=== PATIENT | female | born 1960 | race African-American/Black ===

== ENCOUNTER 2017-01-24 10:38 | Emergency (ER) | payer OTHER ==
[2017-01-24 11:46] LABS: Bilirubin Negative (Negative); Blood, Urine Negative (Negative); Glucose, Urine (Dipstick) Negative (Negative); Ketone, Urine Negative (Negative); Nitrite Positive (Negative); Protein, Urine (Dipstick) Trace mg/dL (Neg-Trace)
[2017-01-24 11:48] LABS: Bacteria/HPF 4+ HPF (None Seen); Hyaline Casts/LPF 0-3 HYALINE CAST LPF (0-3 Hyaline)
[2017-01-24 11:52] LABS: #Basophils 0.1 thou/uL (0.0-0.2); #Eosinphils 0.2 thou/uL (0.0-0.7); #Lymphocytes 2.3 thou/uL (1.20-3.40); #Monocytes 0.5 thou/uL (0.11-0.59); #Neutrophils 2.5 thou/uL (1.40-6.50); %Basophils 1.1 % (0.0-1.0); %Eosinophils 2.7 % (0.0-10.0); %Monocytes 9.3 % (0.0-10.0); Hematocrit 44.2 % (36.0-47.0); Mean Platelet Volume 7.4 fL (7.4-10.4); Red Blood Cell (RBC) Count 4.57 mill/uL (4.20-5.40); White Blood Cell (WBC) Count 5.5 thou/uL (4.8-10.8)
[2017-01-24] MEDS ORDERED: cefTRIAXone\\ROCEPHIN 2 GM VIAL ONE (12:02)
[2017-01-24] MEDS ORDERED: Ketorolac Tromethamine 30 MG/ML VIAL ONE (12:02)
--- NOTE | 2017-01-24 12:07 | CT ---
CT ABDOMEN AND PELVIS PERFORMED WITHOUT CONTRAST ENHANCEMENT: HISTORY: Left flank pain. FINDINGS: ABDOMEN: The lung bases show atelectatic change. The liver, spleen, pancreas, and gallbladder regions all appear unremarkable. The right and left ad renal glands and the right and left kidneys are normal in size. Hypodensity involving the left kidn ey is incompletely characterized but may represent a tiny cyst. There appears to be faint, punctate , nonobstructing bilateral renal calculi. There is no evidence of obstruction of either ureter, and no definite ureteral calculi are seen. There is no significant periaortic or mesenteric adenopathy . PELVIS: No inflammatory process or evidence of any significant adenopathy or mass. IMPRESSION: Tiny faint calcifications involving the kidneys, suggesting tiny punctate calculi. No signs of obst ruction. Subtle hypodensity involving the left kidney, most likely small cysts. POS: [facility]
[2017-01-24 12:12] LABS: ALT (SGPT) 52 U/L (8-55); AST (SGOT) 59 U/L (5-34); Alkaline Phosphatase 95 U/L (40-150); Anion Gap 13 mmol/L (10-20); BUN (Urea Nitrogen) 15 mg/dL (9.8-20.1); Bilirubin, Total 0.3 mg/dL (0.2-1.2); Calc. Creatinine Clearance 0 mL/min (70-130); Calcium 9.6 mg/dL (7.8-10.44); Carbon Dioxide 27 mmol/L (22-29); Chloride 102 mmol/L (98-107); Estimated GFR-MDRD Greater than 90; Globulin 4.1 g/dL (2.4-3.5); Lipase 69 U/L (8-78); Protein, Total 7.9 g/dL (6.0-8.3)
== END 2017-01-24 13:35 | disposition home or self-care (01) ==
LOC: ERS 10:38
DX: N12 Tubulo-interstitial nephritis, not specified as acute or chronic (principal); I10 Essential (primary) hypertension; F31.9 Bipolar disorder, unspecified; F17.210 Nicotine dependence, cigarettes, uncomplicated
CPT/HCPCS: 74176; 80053; 81003; 81015; 83690; 85025; 87077; 87086; 87186; 96365; 96375; J0696; J1885

== ENCOUNTER 2019-01-04 06:53 | Outpatient (CLI) | payer OTHER ==
--- NOTE | 2019-01-04 08:02 | ULT ---
US Abdominal: 01/04/2019 12:00 AM CLINICAL HISTORY: Gastroesophageal reflux. Possible hernia.. STUDY: Complete abdominal ultrasound COMPARISON: None. FINDINGS: Liver: Size: Normal. Echogenicity: Normal. Contour: Smooth. Mass: None. Common bile duct: 4 mm Gallbladder: Normal. Pancreas: Head, body, and tail appear normal. Inferior vena cava: Normal in caliber Aorta: Normal in caliber Spleen: No focal lesions. Spleen measuring 11.4 cm in length. Right kidney: No pelvicalyceal dilatation. Right kidney measuring 9.4 cm in length. Left kidney: No pelvicalyceal dilatation. Left kidney measuring 10.3 cm in length. There is a 1.2 cm cyst in the left kidney. No hernia was seen at the area of concern. IMPRESSION: Left renal cyst; otherwise unremarkable exam
--- NOTE | 2019-01-04 08:13 | RAD ---
EXAM: Single view of the chest HISTORY: Emphysema COMPARISON: 09/29/2015 FINDINGS: Single view of the chest shows a normal sized cardiomediastinal silhouette. There is no phuc dence of consolidation, mass, or pleural effusion. The bones are unremarkable. IMPRESSION: No evidence of acute cardiopulmonary disease
--- NOTE | 2019-01-04 08:15 | RAD ---
EXAM: 3 views of the thoracic spine HISTORY: Thoracic spine pain COMPARISON: None FINDINGS: 3 views of the thoracic spine shows anterior wedging of the T11 vertebral body. This is lik delmy chronic. There is normal height and alignment of the other vertebral bodies without fracture or subluxation. Moderate joint space narrowing and osteophyte formation is seen throughout the thoracic spine. IMPRESSION: Degenerative changes of the thoracic spine without acute osseous abnormality.
--- NOTE | 2019-01-04 09:05 | RAD ---
LUMBAR SPINE 2 VIEWS: Date: 01/04/19 HISTORY: Back pain. Comparison made to a lateral view of the spine taken on chest film of 09/29/15. There is mild anterior wedge compression of the L1 vertebra with disc narrowing at T12-L1. Mild osteo phytes at the T12-L1 level are noted. This mild wedging was present in 2016 and does not appear significantly changed. The other lumbar vertebra maintain normal height. There is loss of disc space at L5-S1 and there is a slight anterolisthesis at L5-S1 with degenerative sparing at L5-S1. There is facet hypertrophy. IMPRESSION: 1. Mild anterior wedging of the L1 vertebra is stable from prior exam. 2. Degenerative change lumbar spine noted as described. POS: [facility]
--- NOTE | 2019-01-05 10:27 | MMO ---
Bilateral MAMMO Bilat Screen [facility]. CLINICAL HISTORY: Patient is 58 years old and is seen for screening. The patient has no family history of breast cancer. The patient has no personal history of cancer. VIEWS: The views performed were: bilateral craniocaudal and bilateral mediolateral oblique. FILMS COMPARED: The present examination has been compared to prior imaging studies performed at [facility] on 10/09/2010, 10/10/2014 and 10/21/2015, and at [facility] [place] on 06/01/2006. This study has been interpreted with the assistance of computer-aided detection. MAMMOGRAM FINDINGS: The breasts are heterogeneously dense, which could obscure a lesion on mammography. There are no suspicious masses, suspicious calcifications, or new areas of architectural distortion. IMPRESSION: THERE IS NO MAMMOGRAPHIC EVIDENCE OF MALIGNANCY. A ROUTINE FOLLOW-UP MAMMOGRAM IN 1 YEAR IS RECOMMENDED. ACR BI-RADS Category 1 - Negative MAMMOGRAPHY NOTE: 1. A negative mammogram report should not delay a biopsy if a dominant of clinically suspicious mass is present. 2. Approximately 10% to 15% of breast cancers are not detected by mammography. 3. Adenosis and dense breasts may obscure an underlying neoplasm. Reported by: DIANELYS ANGUIANO MD Electonically Signed: [id number]
== END 2019-01-04 06:54 | disposition home or self-care (01) ==
LOC: BICULT 06:53 → BICMAMMO 06:54
PROVIDERS: ATTEND Family Medicine
DX: K43.9 Ventral hernia without obstruction or gangrene (principal); J43.8 Other emphysema; M54.6 Pain in thoracic spine; M47.816 Spondylosis without myelopathy or radiculopathy, lumbar region; M47.814 Spondylosis without myelopathy or radiculopathy, thoracic region; N28.1 Cyst of kidney, acquired
CPT/HCPCS: 71045; 72072; 72100; 76700; 77067

== ENCOUNTER 2021-08-07 14:21 | Outpatient (CLI) | payer OTHER | END 2021-08-07 14:22 | disposition home or self-care (01) | LOC: BICMAMMO 14:21 | PROVIDERS: ATTEND Family Medicine | DX: Z12.31 Encounter for screening mammogram for malignant neoplasm of breast (principal) | CPT/HCPCS: 77067 ==

== ENCOUNTER 2021-11-08 07:16 | Emergency (ER) | payer OTHER ==
[2021-11-08] MEDS ORDERED: Ondansetron PF 4 MG/2 ML Vial ONE (07:39)
[2021-11-08] MEDS ORDERED: Morphine 4 MG/ML VIAL ONE (07:39)
[2021-11-08 08:07] LABS: #Eosinphils 0.1 thou/uL (0.0-0.7); #Lymphocytes 1.1 thou/uL (1.20-3.40); #Monocytes 0.7 thou/uL (0.11-0.59); %Basophils 0.1 % (0.0-1.0); %Eosinophils 0.4 % (0.0-10.0); %Lymphocytes 8.2 % (21.0-51.0); %Neutrophils 86.3 % (42.0-75.0); Hemoglobin 7.9 g/dL (12.0-16.0); Mean Corpuscular HGB CONC 29.6 g/dL (32.0-36.0); Mean Corpuscular Hemoglobin 23.5 pg (27.0-31.0); Mean Corpuscular Volume 79.3 fL (78.0-98.0); Mean Platelet Volume 8.3 fL (7.4-10.4); Platelet Count 420 thou/uL (130-400); RBC Distribution Width 20.4 % (11.5-14.5); Red Blood Cell (RBC) Count 3.36 mill/uL (4.20-5.40); White Blood Cell (WBC) Count 13.9 thou/uL (4.8-10.8)
[2021-11-08 08:14] LABS: ALT (SGPT) 19 U/L (8-55); AST (SGOT) 29 U/L (5-34); Albumin 3.3 g/dL (3.4-4.8); Alkaline Phosphatase 96 U/L (40-110); Anion Gap 13 mmol/L (10-20); BUN (Urea Nitrogen) 14 mg/dL (9.8-20.1); Bilirubin, Total 0.8 mg/dL (0.2-1.2); CK (CPK) 26 U/L (29-168); Calc. Creatinine Clearance 0 mL/min (70-130); Calcium 9.3 mg/dL (7.8-10.44); Carbon Dioxide 22 mmol/L (23-31); Chloride 107 mmol/L (98-107); Estimated GFR 66; Globulin 3.4 g/dL (2.4-3.5); Glucose 98 mg/dL (80-115); Lipase 10 U/L (8-78); Potassium 4.3 mmol/L (3.5-5.1); Protein, Total 6.7 g/dL (5.8-8.1); Sodium 138 mmol/L (136-145)
[2021-11-08 08:30] LABS: Anisocytosis SLIGHT = 6-15 cells (100X) (0-5/hpf); Hypochromia SLIGHT = 6-15 cells (100X) (0-5/hpf); MDiff Complete? YES; Platelet Morphology Comment Appears Increased; Poikilocytosis SLIGHT = 6-15 cells (100X) (0-5/hpf)
[2021-11-08 09:50] LABS: Bilirubin Negative (Negative); Blood, Urine Negative (Negative); Clarity Clear (Clear); Glucose, Urine (Dipstick) Normal (Negative); Ketone, Urine Negative (Negative); Leukocyte Negative Leu/uL (Negative); Nitrite Negative (Negative); Protein, Urine (Dipstick) 10 mg/dL (Neg-Trace); Urobilinogen Normal mg/dL (Less than 2); pH, Urine 6.5 (5.0-9.0)
[2021-11-08 09:53] LABS: Specific Gravity, Urine 1.054 (1.002-1.036)
[2021-11-08] MEDS ORDERED: Iopamidol-370 76% 500 ML 1 ML ONE (13:54)
== END 2021-11-08 10:40 | disposition short-term general hospital (02) ==
LOC: ERS 07:16
DX: K63.89 Other specified diseases of intestine (principal); D72.829 Elevated white blood cell count, unspecified; I10 Essential (primary) hypertension; F17.210 Nicotine dependence, cigarettes, uncomplicated; Z79.899 Other long term (current) drug therapy
CPT/HCPCS: 36415; 74177; 80053; 81003; 82550; 83690; 84484; 85025; 93005; 96361; 96374; 96375; J2270; J2405; Q9967

== ENCOUNTER 2021-11-12 16:11 | Outpatient (CLI) | payer OTHER | END 2021-11-12 16:12 | disposition home or self-care (01) | LOC: LABBT 16:11 | PROVIDERS: ATTEND Internal Medicine | DX: R10.9 Unspecified abdominal pain (principal); R97.0 Elevated carcinoembryonic antigen [CEA]; D64.9 Anemia, unspecified; K63.89 Other specified diseases of intestine; Z20.822 Contact with and (suspected) exposure to COVID-19 | CPT/HCPCS: 87811 ==

== ENCOUNTER 2021-12-16 13:08 | Outpatient (CLI) | payer OTHER ==
[~2021-12-16 13:08] MED LIST: Iopamidol-370 76% 500 ML 1 ML ONE
== END 2021-12-16 13:09 | disposition home or self-care (01) ==
LOC: BICCT 13:08
PROVIDERS: ATTEND Internal Medicine Hematology & Oncology
DX: C18.9 Malignant neoplasm of colon, unspecified (principal); N83.8 Other noninflammatory disorders of ovary, fallopian tube and broad ligament; R60.0 Localized edema; K76.89 Other specified diseases of liver; Z98.890 Other specified postprocedural states
CPT/HCPCS: 71260; 74177; Q9967

== ENCOUNTER 2021-12-31 09:56 | Outpatient (CLI) | payer OTHER ==
[2021-12-31 13:02] LABS: Anion Gap 14 mmol/L (10-20); BUN (Urea Nitrogen) 18 mg/dL (9.8-20.1); Calc. Creatinine Clearance 0 mL/min (70-130); Calcium 9.2 mg/dL (7.8-10.44); Carbon Dioxide 24 mmol/L (23-31); Chloride 108 mmol/L (98-107); Estimated GFR 87; Glucose 84 mg/dL (80-115); Potassium 4.2 mmol/L (3.5-5.1); Sodium 142 mmol/L (136-145)
[2021-12-31 13:56] LABS: #Basophils 0.1 10x3/uL (0.0-0.2); #Eosinphils 0.5 10x3/uL (0.0-0.5); #Monocytes 0.7 10x3/uL (0.0-1.1); #Neutrophils 4.7 10x3/uL (1.5-8.4); %Basophils 1.7 % (0.0-2.0); %Eosinophils 5.9 % (0.0-6.0); %Lymphocytes 21.6 % (18.0-47.0); %Monocytes 8.9 % (0.0-10.0); %Neutrophils 60.1 % (40.0-75.0); Hemoglobin 11.5 g/dL (12.0-15.5); Mean Corpuscular HGB CONC 30.8 g/dL (32.0-36.0); Mean Corpuscular Hemoglobin 26.4 pg (27.0-33.0); Mean Corpuscular Volume 85.7 fl (81.6-98.3); Mean Platelet Volume 11.4 fl (7.4-10.4); Platelet Count 281 10x3/uL (150-450); RBC Distribution Width 25.6 % (11.5-14.5); Red Blood Cell (RBC) Count 4.35 10x6/uL (3.90-5.03); White Blood Cell (WBC) Count 7.9 10x3/uL (3.5-10.5)
[2021-12-31 15:26] LABS: Anisocytosis SLIGHT = 6-15 cells (100X) (0-5/hpf); Hypochromia SLIGHT = 6-15 cells (100X) (0-5/hpf)
[2021-12-31 15:27] LABS: Elliptocytes SLIGHT = 2-5 cells (100X) (0-1/hpf)
[2021-12-31 15:28] LABS: Helmet Cells SLIGHT = 2-5 cells (100X) (0-1/hpf)
[2021-12-31 15:29] LABS: Platelet Morphology Comment Appears Adequate
== END 2021-12-31 09:57 | disposition home or self-care (01) ==
LOC: LABBT 09:56
PROVIDERS: ATTEND Specialist
DX: Z01.818 Encounter for other preprocedural examination (principal); C18.9 Malignant neoplasm of colon, unspecified; Z20.822 Contact with and (suspected) exposure to COVID-19
CPT/HCPCS: 80048; 85025; 87811; 93005; 93010

== ENCOUNTER 2022-01-11 14:25 | Outpatient (CLI) | payer OTHER | END 2022-01-11 14:26 | disposition home or self-care (01) | LOC: BICULT 14:25 | PROVIDERS: ATTEND Internal Medicine Hematology & Oncology | DX: R19.00 Intra-abdominal and pelvic swelling, mass and lump, unspecified site (principal); Z87.42 Personal history of other diseases of the female genital tract; Z85.038 Personal history of other malignant neoplasm of large intestine | CPT/HCPCS: 76856 ==

== ENCOUNTER 2022-01-26 08:45 | Outpatient (CLI) | payer OTHER | END 2022-01-26 08:46 | disposition home or self-care (01) | LOC: PET 08:45 | PROVIDERS: ATTEND Internal Medicine Hematology & Oncology | DX: C18.9 Malignant neoplasm of colon, unspecified (principal); C78.7 Secondary malignant neoplasm of liver and intrahepatic bile duct; C78.89 Secondary malignant neoplasm of other digestive organs; C78.6 Secondary malignant neoplasm of retroperitoneum and peritoneum | CPT/HCPCS: 78815; A9552 ==

== ENCOUNTER 2022-05-13 11:20 | Inpatient (IN) | payer OTHER ==
[2022-05-13] MEDS ORDERED: Morphine 2 MG/ML VIAL ONE (12:39)
[2022-05-13 13:05] LABS: ALT (SGPT) 19 U/L (8-55); AST (SGOT) 137 U/L (5-34); Albumin 2.9 g/dL (3.4-4.8); Alkaline Phosphatase 303 U/L (40-110); Anion Gap 13 mmol/L (10-20); BUN (Urea Nitrogen) 15 mg/dL (9.8-20.1); Bilirubin, Total 1.5 mg/dL (0.2-1.2); Calc. Creatinine Clearance 0 mL/min (70-130); Calcium 10.2 mg/dL (7.8-10.44); Carbon Dioxide 24 mmol/L (23-31); Chloride 105 mmol/L (98-107); Estimated GFR 98; Globulin 4.6 g/dL (2.4-3.5); Glucose 86 mg/dL (80-115); Potassium 5.3 mmol/L (3.5-5.1); Protein, Total 7.5 g/dL (5.8-8.1); Sodium 137 mmol/L (136-145)
[2022-05-13 13:07] LABS: Hemoglobin 13.2 g/dL (12.0-16.0); Mean Corpuscular Hemoglobin 31.1 pg (27.0-31.0); Mean Platelet Volume 7.9 fL (7.4-10.4); Platelet Count 459 10x3/uL (130-400); Red Blood Cell (RBC) Count 4.24 mill/uL (4.20-5.40); White Blood Cell (WBC) Count 2.7 10x3/uL (4.8-10.8)
[2022-05-13 13:32] LABS: Eosinophils 2 % (0-10); Hypochromia SLIGHT = 6-15 cells (100X) (0-5/hpf); Lymphocytes 20 % (21-51); MDiff Complete? YES; Macrocytosis SLIGHT = 6-15 cells (100X) (0-5/hpf); Monocytes 28 % (0-10); Neutrophil 47 % (42-75); Platelet Morphology Comment Appears Increased; Polychromasia SLIGHT = 2-3 cells (100X) (0-2/hpf); Reactive Lymphocytes 1 % (0-10)
[2022-05-13] MEDS ORDERED: Iopamidol-370 76% 500 ML 1 ML ONE (14:37)
[2022-05-13] MEDS ORDERED: Cefepime 2 GM VIAL ONE (15:08)
[2022-05-13] MEDS ORDERED: Vancomycin 1 GM/200 ML (FROZEN) BAG ONE (15:48)
[2022-05-13] MEDS ORDERED: Acetaminophen 325 MG TAB PO PRN (17:47)
[2022-05-13] MEDS ORDERED: Ondansetron ODT 4 MG TAB PO PRN (17:47)
[2022-05-13] MEDS ORDERED: LOKELMA 10 GM PACKET PO SCH (18:00)
[2022-05-13] MEDS ORDERED: HYDROcodone/Acetaminophen 5/325 mg Tablet ONE (18:56)
[2022-05-13] MEDS: HYDROcodone/Acetaminophen 5/325 mg Tablet PO PRN ×2 (19:00→22:59)
[2022-05-13] MEDS ORDERED: Famotidine 20 MG TAB ONE (20:05)
[2022-05-13] MEDS: Lactated Ringer's 1,000 ML IV SCH (20:17)
[2022-05-13] MEDS: Famotidine 20 MG TAB PO SCH (20:17)
[2022-05-13 20:39] LABS: Bilirubin 1+ (Negative); Blood, Urine Negative (Negative); Calcium Oxalate Crystals Rare HPF (None Seen); Clarity Clear (Clear); Glucose, Urine (Dipstick) Normal (Negative); Ketone, Urine Trace mg/dL (Negative); Leukocyte Negative Leu/uL (Negative); Nitrite Negative (Negative); Protein, Urine (Dipstick) 50 mg/dL (Neg-Trace); RBC/HPF 0-3 HPF (0-3); Squamous Epithelial 0-3 HPF (0-3); WBC/HPF 0-3 HPF (0-3)
[2022-05-13 20:50] LABS: Bacteria/HPF 1+ HPF (None Seen); Specific Gravity, Urine 1.065 (1.002-1.036)
[2022-05-13 22:11] LABS: SARS-CoV-2 NAA Rapid Test Not Detected (NotDetected)
[2022-05-13] MEDS: Albumin 25% 25 GM/100 ML BOT IVPB SCH (23:00)
[2022-05-13 23:37] LABS: Amphetamine Not Detected (NotDetected); Barbiturates Screen Not Detected (NotDetected); Benzodiazepine Screen Not Detected (NotDetected); Cocaine Metabolite Screen Detected (NotDetected); Methadone Not Detected (NotDetected); Methamphetamine Not Detected (NotDetected); Opiate Screen Detected (NotDetected); Oxycodone Screen Detected (NotDetected); Phencyclidine (PCP) Not Detected (NotDetected); THC/Cannabinoid Screen Not Detected (NotDetected); Tricyclic Screen Not Detected (NotDetected)
[2022-05-14 00:41] VITALS: BMI 20.7
[2022-05-14] MEDS: HYDROcodone/Acetaminophen 5/325 mg Tablet PO PRN ×3 (04:30→16:27)
[2022-05-14] MEDS: fentaNYL 50 mcg/hour Patch TD SCH (04:31)
[2022-05-14 05:03] LABS: Hemoglobin 10.6 g/dL (12.0-16.0); Mean Corpuscular HGB CONC 30.9 g/dL (32.0-36.0); Mean Corpuscular Hemoglobin 31.2 pg (27.0-31.0); Mean Platelet Volume 7.9 fL (7.4-10.4); Platelet Count 357 10x3/uL (130-400); Red Blood Cell (RBC) Count 3.42 mill/uL (4.20-5.40); White Blood Cell (WBC) Count 2.8 10x3/uL (4.8-10.8)
[2022-05-14 05:24] LABS: ALT (SGPT) 12 U/L (8-55); AST (SGOT) 91 U/L (5-34); Albumin 2.8 g/dL (3.4-4.8); Alkaline Phosphatase 187 U/L (40-110); Anion Gap 14 mmol/L (10-20); BUN (Urea Nitrogen) 15 mg/dL (9.8-20.1); Bilirubin, Total 1.4 mg/dL (0.2-1.2); Calc. Creatinine Clearance 90 mL/min (70-130); Carbon Dioxide 21 mmol/L (23-31); Chloride 105 mmol/L (98-107); Estimated GFR 100; Globulin 3.2 g/dL (2.4-3.5); Glucose 68 mg/dL (80-115); Potassium 4.1 mmol/L (3.5-5.1); Sodium 136 mmol/L (136-145)
[2022-05-14] MEDS: Lactated Ringer's 1,000 ML IV SCH (05:33)
[2022-05-14] MEDS: Albumin 25% 25 GM/100 ML BOT IVPB SCH ×3 (05:34→17:54)
[2022-05-14 06:11] LABS: Anisocytosis SLIGHT = 6-15 cells (100X) (0-5/hpf); Band 6 % (5-11); Eosinophils 2 % (0-10); Hypochromia SLIGHT = 6-15 cells (100X) (0-5/hpf); Lymphocytes 17 % (21-51); MDiff Complete? YES; Monocytes 10 % (0-10); Neutrophil 65 % (42-75); Ovalocytes SLIGHT = 2-5 cells (100X) (0-1/hpf); Platelet Morphology Comment Appears Adequate; Polychromasia SLIGHT = 2-3 cells (100X) (0-2/hpf)
[2022-05-14 07:59] LABS: INR-International Normal Ratio 1.2; Prothrombin Time 15.9 sec (12.0-14.7)
[2022-05-14 08:00] LABS: PTT 47.9 sec (22.9-36.1)
[2022-05-14] MEDS ORDERED: Sodium Bicarbonate 2.5 MEQ/5 ML VIAL ONE (08:37)
[2022-05-14] MEDS ORDERED: Lidocaine 1% PF 5 ML VIAL ONE (08:37)
[2022-05-14] MEDS ORDERED: FLU VACC QS2022-23(6MOS UP)/PF 60 MCG/0.5 ML SYRINGE IM ONE (09:00)
[2022-05-14] MEDS: Prenatal Vitamin 1 TAB PO SCH (10:28)
[2022-05-14] MEDS: Famotidine 20 MG TAB PO SCH ×2 (10:28→20:37)
[2022-05-14] MEDS: Ondansetron PF 4 MG/2 ML Vial IVP PRN (10:28)
[2022-05-14 11:06] LABS: Fluid, Protein 2.5 g/dL (Not Available)
[2022-05-14 11:12] LABS: RBC Count-Automated (BF) 151 /cu.mm; WBC/Nucleated-Auto (BF) 81 /cu.mm
[2022-05-14 12:17] LABS: Body Fluid Source Ascites Body Fluid; Tube # EDTA
[2022-05-14 12:18] LABS: BF Color Yellow; Clarity Hazy (Clear)
[2022-05-14 12:19] LABS: BF Segmented Neutrophils 1 %; Cell Count Non Hematic 83 %; Lymphocytes 16 %
[2022-05-14] MEDS: Dronabinol 2.5 MG CAP PO SCH (16:25)
[2022-05-14] MEDS: Temazepam 15 MG CAP PO SCH (20:38)
[2022-05-14] MEDS: Senokot S 8.6-50 MG TAB PO SCH (20:38)
[2022-05-15] MEDS: HYDROcodone/Acetaminophen 5/325 mg Tablet PO PRN ×3 (01:55→16:40)
[2022-05-15 05:28] LABS: Hemoglobin 10.7 g/dL (12.0-16.0); Mean Corpuscular HGB CONC 32.4 g/dL (32.0-36.0); Mean Corpuscular Hemoglobin 32.3 pg (27.0-31.0); Platelet Count 310 10x3/uL (130-400); RBC Distribution Width 17.8 % (11.5-14.5); Red Blood Cell (RBC) Count 3.31 mill/uL (4.20-5.40); White Blood Cell (WBC) Count 4.3 10x3/uL (4.8-10.8)
[2022-05-15 05:45] LABS: ALT (SGPT) 9 U/L (8-55); AST (SGOT) 80 U/L (5-34); Albumin 2.8 g/dL (3.4-4.8); Alkaline Phosphatase 127 U/L (40-110); Anion Gap 12 mmol/L (10-20); BUN (Urea Nitrogen) 13 mg/dL (9.8-20.1); Bilirubin, Total 1.3 mg/dL (0.2-1.2); Calc. Creatinine Clearance 104 mL/min (70-130); Calcium 8.1 mg/dL (7.8-10.44); Carbon Dioxide 21 mmol/L (23-31); Chloride 109 mmol/L (98-107); Estimated GFR 104; Globulin 2.3 g/dL (2.4-3.5); Glucose 83 mg/dL (80-115); Potassium 3.5 mmol/L (3.5-5.1); Protein, Total 5.1 g/dL (5.8-8.1); Sodium 138 mmol/L (136-145)
[2022-05-15 06:09] LABS: MDiff Complete? YES
[2022-05-15 06:10] LABS: Band 12 % (5-11); Eosinophils 1 % (0-10); Lymphocytes 13 % (21-51); Monocytes 13 % (0-10); Neutrophil 61 % (42-75)
[2022-05-15] MEDS: Polyethylene Glycol 3350 17 GM Packet PO SCH (08:28)
[2022-05-15] MEDS: Dronabinol 2.5 MG CAP PO SCH ×2 (08:29→16:45)
[2022-05-15] MEDS: Senokot S 8.6-50 MG TAB PO SCH ×2 (08:29→19:52)
[2022-05-15] MEDS: Prenatal Vitamin 1 TAB PO SCH (08:29)
[2022-05-15] MEDS: Famotidine 20 MG TAB PO SCH ×2 (08:29→19:52)
[2022-05-15] MEDS: Ondansetron PF 4 MG/2 ML Vial IVP PRN ×2 (08:35→18:36)
[2022-05-15] MEDS: Mirtazapine 15 MG TAB PO SCH (19:52)
[2022-05-15] MEDS: Temazepam 15 MG CAP PO SCH (19:52)
[2022-05-16 05:57] LABS: Hemoglobin 12.3 g/dL (12.0-16.0); Mean Corpuscular HGB CONC 31.5 g/dL (32.0-36.0); Mean Corpuscular Hemoglobin 31.3 pg (27.0-31.0); Mean Corpuscular Volume 99.2 fl (78.0-98.0); Mean Platelet Volume 8.2 fL (7.4-10.4); Platelet Count 320 10x3/uL (130-400); Red Blood Cell (RBC) Count 3.92 mill/uL (4.20-5.40); White Blood Cell (WBC) Count 6.5 10x3/uL (4.8-10.8)
[2022-05-16 06:13] LABS: ALT (SGPT) 12 U/L (8-55); AST (SGOT) 106 U/L (5-34); Alkaline Phosphatase 174 U/L (40-110); Anion Gap 15 mmol/L (10-20); BUN (Urea Nitrogen) 14 mg/dL (9.8-20.1); Bilirubin, Total 1.5 mg/dL (0.2-1.2); Calc. Creatinine Clearance 96 mL/min (70-130); Calcium 9.2 mg/dL (7.8-10.44); Carbon Dioxide 25 mmol/L (23-31); Chloride 105 mmol/L (98-107); Estimated GFR 102; Glucose 98 mg/dL (80-115); Potassium 4.5 mmol/L (3.5-5.1); Sodium 140 mmol/L (136-145)
[2022-05-16 07:08] LABS: Anisocytosis SLIGHT = 6-15 cells (100X) (0-5/hpf); Band 6 % (5-11); Eosinophils 1 % (0-10); Hypochromia SLIGHT = 6-15 cells (100X) (0-5/hpf); Lymphocytes 5 % (21-51); MDiff Complete? YES; Monocytes 15 % (0-10); Neutrophil 73 % (42-75); Platelet Morphology Comment Appears Adequate; Stomatocytes SLIGHT = 2-5 cells (100X) (0-1/hpf)
[2022-05-16] MEDS: Polyethylene Glycol 3350 17 GM Packet PO SCH (08:38)
[2022-05-16] MEDS: Dronabinol 2.5 MG CAP PO SCH ×2 (08:39→16:22)
[2022-05-16] MEDS: Senokot S 8.6-50 MG TAB PO SCH ×2 (08:39→20:51)
[2022-05-16] MEDS: HYDROcodone/Acetaminophen 5/325 mg Tablet PO PRN ×2 (08:39→20:51)
[2022-05-16] MEDS: Famotidine 20 MG TAB PO SCH ×2 (08:39→20:51)
[2022-05-16] MEDS: Prenatal Vitamin 1 TAB PO SCH (08:41)
[2022-05-16] MEDS: Mirtazapine 15 MG TAB PO SCH (20:51)
[2022-05-17] MEDS: fentaNYL 50 mcg/hour Patch TD SCH (05:29)
[2022-05-17] MEDS: HYDROcodone/Acetaminophen 5/325 mg Tablet PO PRN ×2 (05:35→19:51)
[2022-05-17 06:44] LABS: Hemoglobin 11.8 g/dL (12.0-16.0); Mean Corpuscular HGB CONC 31.9 g/dL (32.0-36.0); Mean Corpuscular Hemoglobin 31.6 pg (27.0-31.0); Mean Corpuscular Volume 98.8 fl (78.0-98.0); Platelet Count 309 10x3/uL (130-400); RBC Distribution Width 17.9 % (11.5-14.5); Red Blood Cell (RBC) Count 3.74 mill/uL (4.20-5.40); White Blood Cell (WBC) Count 8.9 10x3/uL (4.8-10.8)
[2022-05-17 06:59] LABS: ALT (SGPT) 16 U/L (8-55); AST (SGOT) 143 U/L (5-34); Albumin 2.6 g/dL (3.4-4.8); Alkaline Phosphatase 172 U/L (40-110); Anion Gap 14 mmol/L (10-20); BUN (Urea Nitrogen) 15 mg/dL (9.8-20.1); Bilirubin, Total 1.7 mg/dL (0.2-1.2); Calc. Creatinine Clearance 104 mL/min (70-130); Calcium 9.5 mg/dL (7.8-10.44); Carbon Dioxide 24 mmol/L (23-31); Chloride 104 mmol/L (98-107); Estimated GFR 104; Globulin 3.3 g/dL (2.4-3.5); Glucose 72 mg/dL (80-115); Potassium 4.5 mmol/L (3.5-5.1); Protein, Total 5.9 g/dL (5.8-8.1); Sodium 137 mmol/L (136-145)
[2022-05-17] MEDS: Polyethylene Glycol 3350 17 GM Packet PO SCH (08:16)
[2022-05-17] MEDS: Dronabinol 2.5 MG CAP PO SCH ×2 (08:16→15:46)
[2022-05-17] MEDS: Prenatal Vitamin 1 TAB PO SCH (08:17)
[2022-05-17] MEDS: Famotidine 20 MG TAB PO SCH ×2 (08:17→21:56)
[2022-05-17] MEDS: Senokot S 8.6-50 MG TAB PO SCH ×2 (08:17→21:57)
[2022-05-17 09:38] LABS: Band 18 % (5-11); Eosinophils 2 % (0-10); Lymphocytes 16 % (21-51); MDiff Complete? YES; Metamyelocyte 1 % (0-0); Monocytes 6 % (0-10); Neutrophil 50 % (42-75); Platelet Morphology Comment Appears Adequate; Polychromasia SLIGHT = 2-3 cells (100X) (0-2/hpf); Reactive Lymphocytes 6 % (0-10); Schistocytes SLIGHT = 2-5 cells (100X) (0-1/hpf)
[2022-05-17] MEDS: Mirtazapine 15 MG TAB PO SCH (21:56)
[2022-05-18] MEDS: HYDROcodone/Acetaminophen 5/325 mg Tablet PO PRN ×4 (04:37→20:21)
[2022-05-18 05:26] LABS: Hemoglobin 11.4 g/dL (12.0-16.0); Mean Corpuscular HGB CONC 31.6 g/dL (32.0-36.0); Mean Corpuscular Hemoglobin 31.1 pg (27.0-31.0); Mean Corpuscular Volume 98.4 fl (78.0-98.0); Mean Platelet Volume 9.2 fL (7.4-10.4); Platelet Count 291 10x3/uL (130-400); Red Blood Cell (RBC) Count 3.66 mill/uL (4.20-5.40); White Blood Cell (WBC) Count 11.7 10x3/uL (4.8-10.8)
[2022-05-18 05:47] LABS: ALT (SGPT) 17 U/L (8-55); AST (SGOT) 157 U/L (5-34); Albumin 2.7 g/dL (3.4-4.8); Alkaline Phosphatase 147 U/L (40-110); Anion Gap 14 mmol/L (10-20); BUN (Urea Nitrogen) 16 mg/dL (9.8-20.1); Calc. Creatinine Clearance 93 mL/min (70-130); Calcium 9.2 mg/dL (7.8-10.44); Carbon Dioxide 24 mmol/L (23-31); Chloride 103 mmol/L (98-107); Estimated GFR 101; Globulin 3.2 g/dL (2.4-3.5); Glucose 81 mg/dL (80-115); Potassium 4.6 mmol/L (3.5-5.1); Protein, Total 5.9 g/dL (5.8-8.1); Sodium 136 mmol/L (136-145)
[2022-05-18 06:08] LABS: Anisocytosis SLIGHT = 6-15 cells (100X) (0-5/hpf); Band 2 % (5-11); Hypochromia SLIGHT = 6-15 cells (100X) (0-5/hpf); Lymphocytes 10 % (21-51); MDiff Complete? YES; Monocytes 24 % (0-10); Neutrophil 64 % (42-75); Platelet Morphology Comment Appears Adequate; Polychromasia SLIGHT = 2-3 cells (100X) (0-2/hpf)
[2022-05-18] MEDS: Dronabinol 2.5 MG CAP PO SCH ×2 (09:49→18:04)
[2022-05-18] MEDS: Prenatal Vitamin 1 TAB PO SCH (09:50)
[2022-05-18] MEDS: Famotidine 20 MG TAB PO SCH ×2 (09:51→20:21)
[2022-05-18] MEDS: Senokot S 8.6-50 MG TAB PO SCH ×2 (09:51→20:21)
[2022-05-18] MEDS: Polyethylene Glycol 3350 17 GM Packet PO SCH (09:51)
[2022-05-18] MEDS: Mirtazapine 15 MG TAB PO SCH (20:21)
[2022-05-19 04:55] LABS: #Eosinphils 0.2 thou/uL (0.0-0.7); #Lymphocytes 1.4 thou/uL (1.20-3.40); #Neutrophils 9.8 thou/uL (1.40-6.50); %Basophils 0.3 % (0.0-1.0); %Eosinophils 1.3 % (0.0-10.0); %Lymphocytes 10.4 % (21.0-51.0); %Monocytes 14.8 % (0.0-10.0); %Neutrophils 73.2 % (42.0-75.0); Hemoglobin 11.7 g/dL (12.0-16.0); Mean Corpuscular HGB CONC 31.5 g/dL (32.0-36.0); Mean Corpuscular Hemoglobin 31.2 pg (27.0-31.0); Mean Corpuscular Volume 98.9 fl (78.0-98.0); Mean Platelet Volume 8.5 fL (7.4-10.4); Platelet Count 293 10x3/uL (130-400); RBC Distribution Width 17.5 % (11.5-14.5); Red Blood Cell (RBC) Count 3.74 mill/uL (4.20-5.40); White Blood Cell (WBC) Count 13.4 10x3/uL (4.8-10.8)
[2022-05-19] MEDS: HYDROcodone/Acetaminophen 5/325 mg Tablet PO PRN ×3 (04:58→20:21)
[2022-05-19 05:22] LABS: ALT (SGPT) 21 U/L (8-55); AST (SGOT) 190 U/L (5-34); Albumin 2.6 g/dL (3.4-4.8); Alkaline Phosphatase 147 U/L (40-110); Anion Gap 17 mmol/L (10-20); BUN (Urea Nitrogen) 20 mg/dL (9.8-20.1); Bilirubin, Total 2.1 mg/dL (0.2-1.2); Calc. Creatinine Clearance 87 mL/min (70-130); Calcium 9.5 mg/dL (7.8-10.44); Carbon Dioxide 23 mmol/L (23-31); Chloride 102 mmol/L (98-107); Estimated GFR 99; Globulin 3.6 g/dL (2.4-3.5); Glucose 70 mg/dL (80-115); Potassium 4.7 mmol/L (3.5-5.1); Protein, Total 6.2 g/dL (5.8-8.1); Sodium 137 mmol/L (136-145)
[2022-05-19] MEDS: Famotidine 20 MG TAB PO SCH ×2 (08:16→20:21)
[2022-05-19] MEDS: Senokot S 8.6-50 MG TAB PO SCH ×2 (08:16→20:21)
[2022-05-19] MEDS: Polyethylene Glycol 3350 17 GM Packet PO SCH (08:16)
[2022-05-19] MEDS: Dronabinol 2.5 MG CAP PO SCH ×2 (08:16→15:57)
[2022-05-19] MEDS: Prenatal Vitamin 1 TAB PO SCH (08:16)
[2022-05-19] MEDS: Ondansetron PF 4 MG/2 ML Vial IVP PRN (11:26)
[2022-05-19] MEDS: Mirtazapine 15 MG TAB PO SCH (20:21)
[2022-05-20] MEDS: fentaNYL 50 mcg/hour Patch TD SCH (04:26)
[2022-05-20] MEDS: HYDROcodone/Acetaminophen 5/325 mg Tablet PO PRN ×3 (04:28→23:22)
[2022-05-20 04:32] LABS: #Basophils 0.1 thou/uL (0.0-0.2); #Eosinphils 0.2 thou/uL (0.0-0.7); #Lymphocytes 1.6 thou/uL (1.20-3.40); #Monocytes 1.8 thou/uL (0.11-0.59); #Neutrophils 10.5 thou/uL (1.40-6.50); %Basophils 0.5 % (0.0-1.0); %Eosinophils 1.3 % (0.0-10.0); %Lymphocytes 11.2 % (21.0-51.0); %Monocytes 12.9 % (0.0-10.0); Hemoglobin 10.8 g/dL (12.0-16.0); Mean Corpuscular HGB CONC 31.5 g/dL (32.0-36.0); Mean Corpuscular Hemoglobin 31.1 pg (27.0-31.0); Mean Corpuscular Volume 98.7 fl (78.0-98.0); Platelet Count 271 10x3/uL (130-400); RBC Distribution Width 17.5 % (11.5-14.5); Red Blood Cell (RBC) Count 3.47 mill/uL (4.20-5.40); White Blood Cell (WBC) Count 14.2 10x3/uL (4.8-10.8)
[2022-05-20 04:53] LABS: ALT (SGPT) 26 U/L (8-55); AST (SGOT) 215 U/L (5-34); Albumin 2.5 g/dL (3.4-4.8); Alkaline Phosphatase 142 U/L (40-110); Anion Gap 17 mmol/L (10-20); BUN (Urea Nitrogen) 23 mg/dL (9.8-20.1); Bilirubin, Total 2.2 mg/dL (0.2-1.2); Calc. Creatinine Clearance 80 mL/min (70-130); Calcium 9.5 mg/dL (7.8-10.44); Carbon Dioxide 22 mmol/L (23-31); Chloride 104 mmol/L (98-107); Estimated GFR 98; Globulin 3.8 g/dL (2.4-3.5); Glucose 72 mg/dL (80-115); Potassium 4.9 mmol/L (3.5-5.1); Protein, Total 6.3 g/dL (5.8-8.1); Sodium 138 mmol/L (136-145)
[2022-05-20] MEDS: Prenatal Vitamin 1 TAB PO SCH (08:59)
[2022-05-20] MEDS: Famotidine 20 MG TAB PO SCH ×2 (08:59→20:21)
[2022-05-20] MEDS: Senokot S 8.6-50 MG TAB PO SCH ×2 (09:00→20:21)
[2022-05-20] MEDS: Polyethylene Glycol 3350 17 GM Packet PO SCH (09:00)
[2022-05-20] MEDS: Dronabinol 2.5 MG CAP PO SCH ×2 (09:11→17:25)
[2022-05-20] MEDS: Mirtazapine 15 MG TAB PO SCH (20:21)
[2022-05-21 05:22] LABS: #Basophils 0.1 thou/uL (0.0-0.2); #Eosinphils 0.2 thou/uL (0.0-0.7); #Lymphocytes 1.6 thou/uL (1.20-3.40); #Monocytes 1.9 thou/uL (0.11-0.59); #Neutrophils 9.8 thou/uL (1.40-6.50); %Basophils 0.4 % (0.0-1.0); %Eosinophils 1.5 % (0.0-10.0); %Lymphocytes 11.6 % (21.0-51.0); %Neutrophils 72.4 % (42.0-75.0); Hemoglobin 10.8 g/dL (12.0-16.0); Mean Corpuscular HGB CONC 31.7 g/dL (32.0-36.0); Mean Corpuscular Hemoglobin 31.3 pg (27.0-31.0); Mean Corpuscular Volume 98.6 fl (78.0-98.0); Mean Platelet Volume 8.5 fL (7.4-10.4); Platelet Count 241 10x3/uL (130-400); RBC Distribution Width 17.6 % (11.5-14.5); Red Blood Cell (RBC) Count 3.44 mill/uL (4.20-5.40); White Blood Cell (WBC) Count 13.6 10x3/uL (4.8-10.8)
[2022-05-21 05:56] LABS: ALT (SGPT) 26 U/L (8-55); AST (SGOT) 204 U/L (5-34); Albumin 2.5 g/dL (3.4-4.8); Alkaline Phosphatase 149 U/L (40-110); Anion Gap 17 mmol/L (10-20); BUN (Urea Nitrogen) 24 mg/dL (9.8-20.1); Bilirubin, Total 2.3 mg/dL (0.2-1.2); Calc. Creatinine Clearance 80 mL/min (70-130); Calcium 9.4 mg/dL (7.8-10.44); Carbon Dioxide 22 mmol/L (23-31); Chloride 103 mmol/L (98-107); Estimated GFR 98; Globulin 3.7 g/dL (2.4-3.5); Glucose 76 mg/dL (80-115); Magnesium 2.3 mg/dL (1.6-2.6); Potassium 4.7 mmol/L (3.5-5.1); Protein, Total 6.2 g/dL (5.8-8.1); Sodium 137 mmol/L (136-145)
[2022-05-21] MEDS: Polyethylene Glycol 3350 17 GM Packet PO SCH (08:31)
[2022-05-21] MEDS: Dronabinol 2.5 MG CAP PO SCH ×2 (08:31→16:40)
[2022-05-21] MEDS: Famotidine 20 MG TAB PO SCH ×2 (08:32→20:14)
[2022-05-21] MEDS: HYDROcodone/Acetaminophen 5/325 mg Tablet PO PRN ×2 (08:32→19:26)
[2022-05-21] MEDS: Prenatal Vitamin 1 TAB PO SCH (08:32)
[2022-05-21] MEDS: Senokot S 8.6-50 MG TAB PO SCH ×2 (08:32→20:18)
[2022-05-21] MEDS: Mirtazapine 15 MG TAB PO SCH (20:14)
[2022-05-22] MEDS: HYDROcodone/Acetaminophen 5/325 mg Tablet PO PRN ×3 (02:45→18:50)
[2022-05-22 05:55] LABS: #Basophils 0.1 thou/uL (0.0-0.2); #Eosinphils 0.1 thou/uL (0.0-0.7); #Lymphocytes 1.1 thou/uL (1.20-3.40); #Monocytes 1.6 thou/uL (0.11-0.59); %Basophils 0.4 % (0.0-1.0); %Eosinophils 0.5 % (0.0-10.0); %Monocytes 11.5 % (0.0-10.0); %Neutrophils 79.7 % (42.0-75.0); Hemoglobin 10.5 g/dL (12.0-16.0); Mean Corpuscular HGB CONC 30.3 g/dL (32.0-36.0); Mean Corpuscular Hemoglobin 30.2 pg (27.0-31.0); Mean Corpuscular Volume 99.6 fl (78.0-98.0); Mean Platelet Volume 9.2 fL (7.4-10.4); Platelet Count 220 10x3/uL (130-400); RBC Distribution Width 17.8 % (11.5-14.5); Red Blood Cell (RBC) Count 3.49 mill/uL (4.20-5.40); White Blood Cell (WBC) Count 13.8 10x3/uL (4.8-10.8)
[2022-05-22 06:17] LABS: ALT (SGPT) 23 U/L (8-55); AST (SGOT) 171 U/L (5-34); Albumin 2.5 g/dL (3.4-4.8); Alkaline Phosphatase 141 U/L (40-110); Anion Gap 13 mmol/L (10-20); BUN (Urea Nitrogen) 23 mg/dL (9.8-20.1); Bilirubin, Total 2.4 mg/dL (0.2-1.2); Calc. Creatinine Clearance 88 mL/min (70-130); Calcium 9.2 mg/dL (7.8-10.44); Carbon Dioxide 24 mmol/L (23-31); Chloride 104 mmol/L (98-107); Estimated GFR 100; Globulin 3.7 g/dL (2.4-3.5); Glucose 80 mg/dL (80-115); Magnesium 2.4 mg/dL (1.6-2.6); Potassium 4.7 mmol/L (3.5-5.1); Protein, Total 6.2 g/dL (5.8-8.1); Sodium 136 mmol/L (136-145)
[2022-05-22] MEDS: Dronabinol 2.5 MG CAP PO SCH ×2 (10:15→16:46)
[2022-05-22] MEDS: Famotidine 20 MG TAB PO SCH ×2 (10:15→20:53)
[2022-05-22] MEDS: Polyethylene Glycol 3350 17 GM Packet PO SCH (10:16)
[2022-05-22] MEDS: Prenatal Vitamin 1 TAB PO SCH (10:16)
[2022-05-22] MEDS: Senokot S 8.6-50 MG TAB PO SCH ×2 (10:16→20:40)
[2022-05-22] MEDS: Mirtazapine 15 MG TAB PO SCH (20:53)
[2022-05-23] MEDS: HYDROcodone/Acetaminophen 5/325 mg Tablet PO PRN ×3 (03:11→16:38)
[2022-05-23] MEDS: fentaNYL 50 mcg/hour Patch TD SCH (05:49)
[2022-05-23 06:14] LABS: #Eosinphils 0.1 thou/uL (0.0-0.7); #Lymphocytes 1.1 thou/uL (1.20-3.40); #Monocytes 1.5 thou/uL (0.11-0.59); #Neutrophils 11.6 thou/uL (1.40-6.50); %Basophils 0.3 % (0.0-1.0); %Eosinophils 0.8 % (0.0-10.0); %Lymphocytes 7.8 % (21.0-51.0); %Monocytes 10.6 % (0.0-10.0); %Neutrophils 80.5 % (42.0-75.0); Hemoglobin 11.1 g/dL (12.0-16.0); Mean Corpuscular HGB CONC 30.9 g/dL (32.0-36.0); Mean Corpuscular Hemoglobin 30.8 pg (27.0-31.0); Mean Corpuscular Volume 99.6 fl (78.0-98.0); Mean Platelet Volume 9.4 fL (7.4-10.4); Platelet Count 235 10x3/uL (130-400); RBC Distribution Width 17.9 % (11.5-14.5); White Blood Cell (WBC) Count 14.5 10x3/uL (4.8-10.8)
[2022-05-23 06:37] LABS: ALT (SGPT) 24 U/L (8-55); AST (SGOT) 169 U/L (5-34); Albumin 2.4 g/dL (3.4-4.8); Alkaline Phosphatase 158 U/L (40-110); Anion Gap 16 mmol/L (10-20); BUN (Urea Nitrogen) 25 mg/dL (9.8-20.1); Bilirubin, Total 2.5 mg/dL (0.2-1.2); Calc. Creatinine Clearance 87 mL/min (70-130); Calcium 9.6 mg/dL (7.8-10.44); Carbon Dioxide 21 mmol/L (23-31); Chloride 104 mmol/L (98-107); Estimated GFR 99; Glucose 73 mg/dL (80-115); Magnesium 2.4 mg/dL (1.6-2.6); Potassium 4.9 mmol/L (3.5-5.1); Protein, Total 6.4 g/dL (5.8-8.1); Sodium 136 mmol/L (136-145)
[2022-05-23] MEDS: Senokot S 8.6-50 MG TAB PO SCH ×2 (10:02→19:50)
[2022-05-23] MEDS: Polyethylene Glycol 3350 17 GM Packet PO SCH (10:02)
[2022-05-23] MEDS: Famotidine 20 MG TAB PO SCH ×2 (10:04→19:47)
[2022-05-23] MEDS: Dronabinol 2.5 MG CAP PO SCH ×2 (10:04→16:36)
[2022-05-23] MEDS: Prenatal Vitamin 1 TAB PO SCH (10:10)
[2022-05-23 17:50] LABS: Bacteria/HPF None Seen HPF (None Seen); Bilirubin 1+ (Negative); Blood, Urine Negative (Negative); CAUTI Indications for Culture Fever or rigors; Clarity Clear (Clear); Glucose, Urine (Dipstick) Normal (Negative); Ketone, Urine 10 mg/dL (Negative); Leukocyte Negative Leu/uL (Negative); Nitrite Negative (Negative); Protein, Urine (Dipstick) 30 mg/dL (Neg-Trace); RBC/HPF 0-3 HPF (0-3); Specific Gravity, Urine 1.032 (1.002-1.036); Squamous Epithelial 0-3 HPF (0-3); Urobilinogen 6 mg/dL (Less than 2); WBC/HPF 0-3 HPF (0-3); pH, Urine 5.5 (5.0-9.0)
[2022-05-23 17:52] LABS: Urine Culture Reflex No No
[2022-05-23] MEDS: Mirtazapine 15 MG TAB PO SCH (19:47)
[2022-05-24] MEDS: HYDROcodone/Acetaminophen 5/325 mg Tablet PO PRN (04:29)
[2022-05-24] MEDS: Prenatal Vitamin 1 TAB PO SCH (08:28)
[2022-05-24] MEDS: Senokot S 8.6-50 MG TAB PO SCH (08:28)
[2022-05-24] MEDS: Famotidine 20 MG TAB PO SCH (08:28)
[2022-05-24] MEDS: Dronabinol 2.5 MG CAP PO SCH ×2 (08:28→17:19)
[2022-05-24] MEDS: Polyethylene Glycol 3350 17 GM Packet PO SCH (08:29)
[2022-05-24] MEDS ORDERED: HYDROcodone/Acetaminophen 5/325 mg Tablet PO PRN (09:43)
[2022-05-24 12:36] VITALS: BP 118/87; TEMP 98.3
[2022-05-24] MEDS ORDERED: hydrALAZINE 20 MG/ML VIAL ONE (15:14)
[2022-05-24] MEDS ORDERED: Fentanyl 100 MCG/2 ML VIAL ONE (15:14)
== END 2022-05-24 17:43 | disposition hospice, home (50) | DRG 180 ==
LOC: ERS 11:20 → ERHOLD 15:56 → MSONC 22:28
PROVIDERS: ADMIT Hospitalist; ATTEND Family Medicine
PROC: 0W9G3ZZ Drainage of Peritoneal Cavity, Percutaneous Approach (ICD-10-PCS; principal; 2022-05-14)
DX: C78.00 Secondary malignant neoplasm of unspecified lung (principal); E43 Unspecified severe protein-calorie malnutrition; C18.9 Malignant neoplasm of colon, unspecified; C78.7 Secondary malignant neoplasm of liver and intrahepatic bile duct; R64 Cachexia; R18.0 Malignant ascites; J91.0 Malignant pleural effusion; Z51.5 Encounter for palliative care; Z66 Do not resuscitate; F14.10 Cocaine abuse, uncomplicated; B18.2 Chronic viral hepatitis C; F31.9 Bipolar disorder, unspecified; F17.210 Nicotine dependence, cigarettes, uncomplicated; D63.0 Anemia in neoplastic disease; I10 Essential (primary) hypertension; E87.5 Hyperkalemia; Z68.20 Body mass index [BMI] 20.0-20.9, adult; Z79.899 Other long term (current) drug therapy
CPT/HCPCS: 36415; 36416; 49083; 71045; 71275; 74177; 80053; 80306; 81001; 81003; 81015; 82042; 82378; 82945; 83605; 83615; 83735; 83880; 84157; 85025; 85060; 85610; 85730; 87040; 87070; 87205; 87811; 89051; 93005; 96365; 96367; 96375; J0360; J0692; J1642; J1650; J2272; J2405; J3010; J3370-JW; J7120; P9047; Q0167; Q9967; U0002